=== PATIENT | female | born 1985 | race Caucasian/White ===

== ENCOUNTER 2016-07-30 12:39 | Inpatient (IN) | payer OTHER ==
[~2016-07-30] VITALS: Ht 160 cm; Wt 74.1 kg
[~2016-07-30 12:39] MED LIST: ALBU8.5H4 IH; CEPH-512 PO; CIPR-231 PO; Cyanocobalamin PO; DOXY100T2 PO; GABA-500 PO; HYDR-4003 PO; Hydrocodone/Acetaminophen PO; IBUP-1827 PO; IBUP800T28 PO; LORA-302 PO; ONDA8TAB10 PO; [UNRECOGNIZED DRUG - CODE] PO
[2016-07-30 13:00] VITALS: BP 131/71; PULSE 91; RESP 18; O2SAT 98
[2016-07-30 14:09] LABS: BASOPHILS % (AUTO) 0.1 % (0-3); EOSINOPHILS % (AUTO) 1.2 % (0-5); MONOCYTES % (AUTO) 8.3 % (4-12); Mean Corpuscular Hemoglobin 32.7 pg (27.0-35.0); Mean Corpuscular Volume 95.2 fL (81-100); NEUTROPHILS % (AUTO) 72.8 % (40-74); Platelet Count 261 bil/L (150-400)
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
[2016-07-30 14:26] LABS: Magnesium 1.7 mg/dL (1.6-2.6)
[2016-07-30] MEDS ORDERED: 0.9% Sodium Chloride 1,000 ML IV ONE ×2 (14:30→15:00)
[2016-07-30 14:49] LABS: COLOR,URINE YELLOW (YELLOW)
[2016-07-30 14:50] LABS: APPEARANCE,URINE SLIGHTLY CLOUDY (CLEAR,HAZY); OCCULT BLOOD,URINE NEGATIVE (NEGATIVE); PH,URINE 8.5 (5.0-8.0); UROBILINOGEN,URINE NORMAL (NORMAL)
[2016-07-30] MEDS ORDERED: cefTRIAXone Inj 1,000 MG in Dextrose 5% Minibag Plus 50 ML IV ONE (14:50)
[2016-07-30] MEDS: HYDROmorphone 0.5 mg/0.5 mL iSecure Syringe IVPUSH PRN ×2 (15:04→15:53)
[2016-07-30 15:28] VITALS: BP 118/82; PULSE 88; RESP 16; O2SAT 98
--- NOTE | 2016-07-30 15:57 | DRSVH ---
PROCEDURE: CT ABDOMEN AND PELVIS WITH CONTRAST (PNL-7102) INDICATIONS: Severe abdominal pain, elevated lipase TECHNIQUE: After the administration of intravenous contrast, 5 mm thick sections acquired from the diaphragm to the symphysis. 5 mm coronal and sagittal reformats were acquired. For radiation dose reduction, the following was used: automated exposure control, adjustment of mA and/or kV according to patient siz e. COMPARISON: [facility], CT, ABD/PELVIS W/CON (PNL), 01/04/2007, 21:45. [facility], CT, CT ABD PELVIS W CON, 10/28/2015, 12:59. FINDINGS: Image quality: Excellent. ABDOMEN: Lung bases: Lung bases are clear. Heart size is normal. Solid organs: Liver and spleen are normal in size and enhancement. Diffuse fatty infiltration of the liver is noted. Gallbladder is within normal limits. Biliary system is non dilated. Pancreas enhan josie normally. There is a small 2.1 x 1.9 x 1.6 cm soft tissue density lesion inferior to the first po rtion the duodenum which has imaging characteristics similar to pancreas suspicious for ectopic pancr eas. The lesion is stable compared to prior examinations. Inflammatory changes and fluid are noted ad jacent to the first and second portions of the duodenum and the head of the pancreas which could repr esent duodenitis, a duodenal ulcer or groove pancreatitis. No adrenal nodules. Kidneys demonstrate normal size and enhancement, without hydronephrosis. Peritoneum and bowel: Bowel loops demonstrate normal wall thickness and caliber. No free air. Small amount of low-density free fluid is noted in the lower pelvis. The appendix is normal. Nodes and vessels: No retroperitoneal or mesenteric adenopathy by size criteria. Aorta and inferior vena cava are normal in size. Miscellaneous: No ventral hernias. PELVIS: Genitourinary: Bladder wall thickness is normal. Miscellaneous: No inguinal hernias or adenopathy. Bones: No suspicious bony lesions. No vertebral body compression fractures. IMPRESSION: 1. Inflammatory changes and free fluid adjacent to the proximal duodenum and head of the pancreas. Fi ndings may be due to duodenitis, penetrating duodenal ulcer or pancreatitis. Please correlate with cl inical and laboratory data. 2. Hepatic steatosis. 3. 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 Dictated by: Krystle Robins MD, PhD on 07/30/2016 at 15:38 Approved by: Krystle Robins MD, PhD on 07/30/2016 at 15:56
[2016-07-30] MEDS ORDERED: Ondansetron 2 mg/mL 2 mL Inj IVPUSH PRN (16:40)
[2016-07-30] MEDS ORDERED: HYDROmorphone 1 mg/mL Inj IVPUSH PRN (16:40)
[2016-07-30 17:13] VITALS: BP 131/66; PULSE 78; RESP 18; O2SAT 99
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
[2016-07-30] MEDS ORDERED: Albuterol 1.25 mg/3 mL Inhalation Solution NEB PRN (17:20)
--- NOTE | 2016-07-30 17:45 | NUR ---
Late Entry/admit Pt arrived via w/ch to room 239-1. Able to stand and transfer indep into bed. Orientated to room, call light, smoking policy, visitor hours.
[2016-07-30] MEDS ORDERED: ACET325T51 PO (18:28)
[2016-07-30] MEDS ORDERED: HYDR-656 ORAL (18:28)
[2016-07-30] MEDS ORDERED: SERT25TA6 ORAL (18:28)
[2016-07-30] MEDS ORDERED: ALBU18HF INHALATION (18:29)
[2016-07-30 19:31] VITALS: BP 115/70; PULSE 71; RESP 20; O2SAT 97
--- NOTE | 2016-07-30 20:41 | NUR ---
PAIN Pt receiving IV 1mg dilaudid q4h, given at 1730. Pain reassessment at 1914, pt states "It did okay to start, but my pain is getting worse." Karissa SHELTON at 1929 to re-evaluate pain regimen. No response. Repeat page at 2029. Awaiting orders. Addendum: 07/30/16 at 2045 by VASHTI FARR RN ordered IVP protonix and increased dilaudid to 1-2mg. Will give increased dose and reassess.
[2016-07-30] MEDS ORDERED: Alum-Mag Hydrox-Simeth 30 mL Suspension PO PRN (20:45)
[2016-07-30] MEDS: Pantoprazole 4 mg/mL 10 mL Inj IVPUSH SCH (21:40)
[2016-07-30] MEDS: HYDROmorphone 1 mg/mL Inj IVPUSH PRN ×2 (21:40→23:34)
[2016-07-30] MEDS: 0.9% Sodium Chloride 1,000 ML IV SCH ×2 (21:40→23:50)
[2016-07-30 23:49] VITALS: BP 104/67; PULSE 70; RESP 16; O2SAT 94
[2016-07-31] MEDS: HYDROmorphone 1 mg/mL Inj IVPUSH PRN ×7 (01:26→21:22)
[2016-07-31 05:40] VITALS: BP 106/68; PULSE 89; RESP 20; O2SAT 96
[2016-07-31] MEDS: 0.9% Sodium Chloride 1,000 ML IV SCH ×4 (05:40→19:50)
[2016-07-31 07:53] LABS: BASOPHILS % (AUTO) 0.3 % (0-3); MONOCYTES % (AUTO) 9.6 % (4-12); Mean Corpuscular Hemoglobin 32.8 pg (27.0-35.0); Mean Corpuscular Volume 97.9 fL (81-100); NEUTROPHILS % (AUTO) 69.9 % (40-74); Platelet Count 230 bil/L (150-400)
[2016-07-31] MEDS: Pantoprazole 4 mg/mL 10 mL Inj IVPUSH SCH ×2 (08:00→16:33)
[2016-07-31 08:05] VITALS: BP 102/74; PULSE 75; RESP 16; O2SAT 94
[2016-07-31 08:18] LABS: Magnesium 1.6 mg/dL (1.6-2.6); Phosphorus 3.2 mg/dL (2.5-4.9)
--- NOTE | 2016-07-31 14:08 | PCM.PNMED ---
Subjective Date of Service Jul 31, 2016 Subjective Roro Gardner is a 31 year old female with past medical history significant for anxiety, alcohol use, asthma on albuterol who presents with 2 days of sharp epigastric pain, nausea, vomiting. Admitted for acute pancreatitis. Hospital day 2. Overnight: The patient complained of ongoing pain that was not controlled with 1 mg of Dilaudid. Dilaudid increased to 1-2 mg. Patient rested comfortably with no further complaints. Today: Patient states pain is improved but not resolved at this time. She continues on normal saline at 200 mL per hour. She denies any current nausea or vomiting. We will attempt to advance diet to clear liquids today. Remaining review systems negative. Exam Vital Signs Vital Sign - Last Date Time Temp Pulse Resp B/P Pulse Ox O2 Delivery O2 Flow Rate FiO2 07/31/16 05:40 36.8 89 20 106/68 96 Room Air Intake and Output 07/30/16 07/30/16 07/31/16 Cumulative From/Thru 15:00 23:00 07:00 07/30/16 13:00 - 07/31/16 04:23 Intake Total 1000 ml 1000 ml 1752 ml 3752 ml Output Total 20 ml 300 ml 320 ml Balance 980 ml 1000 ml 1452 ml 3432 ml Intake Oral 240 ml 240 ml IV Total 1000 ml 1000 ml 1512 ml 3512 ml Output Urine Total 20 ml 300 ml 320 ml # Voids 1 1 Exam General: No acute distress, well-developed, well-nourished, appropriately interactive HEENT: Normocephalic, atraumatic. External ears without defect. Pupils equal, round, and reactive to light and accommodation. Anicteric sclerae, moist conjunctivae, and no lid lag. Oropharynx free of erythema and cobble stoning with moist mucosa. Neck: Supple with full range of motion. No jugular venous distension. No bruits. No lymphadenopathy or thyromegaly. Cardiovascular: Regular rate and rhythm with no murmurs, rubs, or gallops appreciated Pulmonary: Clear to auscultation bilaterally with no crackles, wheezes, or rhonchi. Normal respiratory effort with no use of accessory muscles. Abdomen: Bowel tones present. Soft, mild diffuse tenderness, nondistended. No hepatosplenomegaly or masses appreciated. Extremities: No clubbing, cyanosis, edema, or lymphadenopathy appreciated. Skin: Normal temperature, turgor, and texture; no rash, ulcers, or subcutaneous nodules appreciated. Neurological: Cranial nerves grossly intact. Psychiatric: Normal mood and affect. Alert and oriented to person, place, and time. Lab and Diagnostics Lipase 158 Result Diagram: 07/30/16 1357 07/30/16 1357 X-Rays, CTs and MRIs PROCEDURE: CT ABDOMEN AND PELVIS WITH CONTRAST IMPRESSION: 1. Inflammatory changes and free fluid adjacent to the proximal duodenum and head of the pancreas. Findings may be due to duodenitis, penetrating duodenal ulcer or pancreatitis. Please correlate with clinical and laboratory data. 2. Hepatic steatosis. 3. 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 Dictated by: Krystle Robins MD, PhD on 07/30/2016 at 15:38 Approved by: Krystle Robins MD, PhD on 07/30/2016 at 15:56 Assessment & Plan Roro Gardner is a 31 year old female with past medical history significant for anxiety, alcohol use, asthma on albuterol who presents with 2 days of sharp epigastric pain, nausea, vomiting. Admitted for acute pancreatitis. Hospital day 2. 1. Acute pancreatitis, present on admission. Active. - Etiology likely secondary to alcohol. - CT showed inflammatory changes and free fluid adjacent to head of pancreas. - On admission lipase 158. - Patient received 2 L of normal saline in ED continued on 200 mL per hour. - Dilaudid when necessary for pain. - Nausea and pain improved we will attempt to advance diet to clear liquids. - Continue to monitor. Repeat labs in the morning. 2. Concern for possible duodenal ulcer, present on admission. Active. - CT abdomen showed possible duodenal ulcer as described above. - We will obtain fecal occult blood and monitor hemoglobin and hematocrit. - Consideration of GI consultation inpatient versus outpatient. 3. Alcohol use, present on admission. Active. - Alcohol level on admission less than 10. - Patient states she has 2-3 beers and 2 shots of vodka a day. - Discussion about abstaining or at least decreasing the amount of intake. 4. Asthma, present on admission. Chronic. - Albuterol Q6H PRN shortness of breath. 5. Anxiety, present on admission. Chronic. - Sertraline continued from home. 6. Tobacco use, present on admission. Chronic. - NicoDerm patch 21 mg per day. - Discussed cessation with patient. Disposition: Patient's diet advanced to clear liquids. Discharge pending pain control and ability to tolerate oral intake. Pain Evaluation: Adequate Pain Control GI Prophylaxis: Proton Pump Inhibitor VTE Prophylaxis: Sub-Q Enoxaparin Resuscitation Status: CPR: Attempt Resuscitation Attending Statement patient seen and examined with Dr White .I agree with the history,exam, impression and plan as outlined above CRIS WHITE DO Jul 31, 2016 07:57 Jacob Terrazas MD Jul 31, 2016 18:45
--- NOTE | 2016-07-31 16:53 | NUR ---
Social Work: Brief Note Data & Assessment: EMR Reviewed. Patient is a 31 y/o female that admitted for pancreatitis. Patient NOK is listed as Ioana Aguilar [phone]. Patient's insurance is listed as [employer] and PCP is listed as Hernando Paz DO. Patient was discussed in daily rounds and the plan is for the patient to start a clear liquid diet to day and possibly discharge tomorrow. Patient does not have any SW needs at the current time. SW will continue to follow in case a need arise. Plan: Patient is likely to discharge home no needs via POV. SW will continue to follow. Saima Willis LMSW, ERIN
--- NOTE | 2016-07-31 19:12 | NUR ---
pain/mobility/po intake Diet advanced to CL then to full liquid. No pain in associated directly to PO intake Pain 5-10 mid upper abdomen. Able to have rest periods, friends visiting. Took shower indep. Refused Zoloft as she says it makes her lose her hair, she has been weaning herself at home over the last week+ Plan to advance to general diet for breakfast. transition to PO pain pills Discharge home. Pt aware and states that is what she wants this also.
[2016-07-31 22:55] VITALS: BP 119/76; PULSE 79; RESP 18; O2SAT 92
[2016-08-01] MEDS: HYDROmorphone 1 mg/mL Inj IVPUSH PRN ×3 (02:06→14:48)
[2016-08-01] MEDS: 0.9% Sodium Chloride 1,000 ML IV SCH ×2 (05:40→14:48)
--- NOTE | 2016-08-01 06:10 | NUR ---
Pain Pt was trying to only take PO pain meds but after pt had full liquid dinner abdominal pain increased to 10/10 and 10 mg Oxycodone not effective, therefore 2 doses of 1 mg IV Dilaudid given over night. Pt again tried PO pain meds in AM, no N/V noted/reported.
[2016-08-01 07:18] LABS: BASOPHILS % (AUTO) 0.4 % (0-3); EOSINOPHILS % (AUTO) 2.6 % (0-5); MONOCYTES % (AUTO) 10.9 % (4-12); Mean Corpuscular Hemoglobin 33.1 pg (27.0-35.0); Mean Corpuscular Volume 95.6 fL (81-100); Platelet Count 240 bil/L (150-400)
[2016-08-01] MEDS: Pantoprazole 4 mg/mL 10 mL Inj IVPUSH SCH ×2 (09:46→16:57)
[2016-08-01 09:51] VITALS: BP 129/77; PULSE 68; RESP 19; O2SAT 98
--- NOTE | 2016-08-01 10:44 | NUR ---
Morning Rounds Staffed patient's case with Dr. Gudino, case management and social work. Dr. Gudino stated no plan for discharge at this time due to patient's pain not controlled.
[2016-08-01] MEDS ORDERED: Polyethylene Glycol (PEG) 17 Gm Powder PO PRN (12:00)
--- NOTE | 2016-08-01 12:59 | PCM.PNMED ---
Subjective Date of Service Aug 01, 2016 Subjective Sig pain last deanne after few bites of full liquids and oral pain meds weren't sufficient. Same this morning. 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 Vital Sign - Last Date Time Temp Pulse Resp B/P Pulse Ox O2 Delivery O2 Flow Rate FiO2 08/01/16 09:51 36.9 68 19 129/77 98 Room Air Intake and Output 07/31/16 07/31/16 08/01/16 Cumulative From/Thru 15:00 23:00 07:00 07/30/16 13:00 - 08/01/16 06:13 Intake Total 440 ml 1976 ml 6168 ml Output Total 200 ml 700 ml 1220 ml Balance 240 ml 1276 ml 4948 ml Intake Oral 440 ml 861 ml 1541 ml IV Total 1115 ml 4627 ml Output Urine Total 200 ml 700 ml 1220 ml # Voids 4 5 Exam Alert, NAD Heart: Reg Lungs: Clear Abd: soft, mild tenderness across upper abd, BT present Extrem: no pedal edema IVs and Medications Medications Reviewed: Medications were reviewed in detail Lab and Diagnostics Result Diagram: 08/01/1652408/01/16524 Microbiology COLIN CULT URINE Final Collected 07/30/16 08/01/16-0839 Organism 1 ESCHERICHIA COLI U COLONY COUNT/QUANTITY >100,000 CFU/ml Cefazolin-predicts results for the oral agents, cefaclor,cefdinir, cefpodoximen, cefprozil, cefuroximne axetil, cephalexin and loracarbed when used for therapy of uncomplicated UTI's due to E. coli, K. pneumoniae, and Proteus mirabilis. Cefpodoxime, cefdinir and cefuroxime axetil may be tested individually because some isolates may be susceptible to these agents while testing resistant to cefazolin. (CLSI [id number] pg 53) 1. ESCHERICHIA COLI M.I.C Interp --------- ------ * AMOXICILLIN/CLAVULATE 16 I * AMPICILLIN >=32 R * CEFAZOLIN (CEPHALOSPORIN) UTI 4 S * CEFEPIME <=1 S * CEFTRIAXONE <=1 S * CEFUROXIME SODIUM 16 I * CIPROFLOXACIN >=4 R * ERTAPENEM <=0.5 S * GENTAMICIN <=1 S * IMIPENEM <=1 S * LEVOFLOXACIN >=8 R * NITROFURANTOIN <=16 S * TETRACYCLINE >=16 R * TOBRAMYCIN <=1 S * TRIMETHOPRIM/SULFAMETHOXAZOLE >=320 R X-Rays, CTs and MRIs PROCEDURE: CT ABDOMEN AND PELVIS WITH CONTRAST IMPRESSION: 1. Inflammatory changes and free fluid adjacent to the proximal duodenum and head of the pancreas. Findings may be due to duodenitis, penetrating duodenal ulcer or pancreatitis. Please correlate with clinical and laboratory data. 2. Hepatic steatosis. 3. 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 Dictated by: Krystle Robins MD, PhD on 07/30/2016 at 15:38 Approved by: Krystle Robins MD, PhD on 07/30/2016 at 15:56 Assessment & Plan Roro Gardner is a 31 year old female with past medical history significant for anxiety, alcohol use, asthma on albuterol who presents with 2 days of sharp epigastric pain, nausea, vomiting. Admitted for acute pancreatitis. Hospital day 2. # Acute pancreatitis, present on admission. Active. - Etiology likely secondary to alcohol. - CT showed inflammatory changes and free fluid adjacent to head of pancreas. - On admission lipase 158 and today normal at 58 - Patient received 2 L of normal saline in ED and initially continued on 200 mL per hour, will decrease rate - Dilaudid when necessary for pain. - Continue to monitor. - For now continue full liquids # Ecoli UTI, acute. - Will Rx Keflex x 5d # Concern for possible duodenal ulcer, present on admission. Active. - CT abdomen showed possible duodenal ulcer as described above. - We will obtain fecal occult blood and monitor hemoglobin and hematocrit. - Consideration of GI consultation inpatient versus outpatient. # Alcohol use, present on admission. Active. - Alcohol level on admission less than 10. - Patient states she has 2-3 beers and 2 shots of vodka a day. - Discussion about abstaining or at least decreasing the amount of intake. # Asthma, present on admission. Chronic. - Albuterol Q6H PRN shortness of breath. # Anxiety, present on admission. Chronic. - Sertraline continued from home. # Tobacco use, present on admission. Chronic. - NicoDerm patch 21 mg per day. - Discussed cessation with patient. Disposition: Discharge when pain controlled with oral meds and able to tolerate oral intake. GI Prophylaxis: Proton Pump Inhibitor VTE Prophylaxis: Sub-Q Enoxaparin Resuscitation Status: CPR: Attempt Resuscitation Briana Gudino MD Aug 01, 2016 12:59
[2016-08-01 16:56] VITALS: BP 133/84; PULSE 94; RESP 14; O2SAT 96
[2016-08-01 19:41] VITALS: BP 119/74; PULSE 81; RESP 16; O2SAT 97
[2016-08-02 00:09] VITALS: BP 131/85; PULSE 89; RESP 16; O2SAT 97
[2016-08-02] MEDS: 0.9% Sodium Chloride 1,000 ML IV SCH (00:11)
--- NOTE | 2016-08-02 00:30 | NUR ---
pain/iv: pt's iv infiltrated in left thumb, dc'd, offered to place new iv, pt. declined for now stating she is going to try to go through the night on oral pain meds so she can hopefully dc home tomorrow. pt. has had good po intake and urine output over 1,600 today. rating pain 7/10, po roxicodone given, will cont. to monitor.
[2016-08-02 08:26] VITALS: BP 137/87; PULSE 95; RESP 18; O2SAT 97
--- NOTE | 2016-08-02 08:33 | NUR ---
Sertraline Held Patient stated she has stopped taking Sertraline, as it has caused her hair to fall out.
--- NOTE | 2016-08-02 08:37 | NUR ---
IV access/IV Protonix Contacted Dr. Gudino with the following cook page: Patient lost IV access overnight and did not want another IV started, but IV Protonix is scheduled for this morning. Please advise. Thank you. Effie ANNE
--- NOTE | 2016-08-02 10:26 | PCM.DIMED ---
Discharge Instructions Date of Service Aug 02, 2016 Dates of Hospitalization Jul 30, 2016 at 16:54 Diet Other (Very low fat for another 2 weeks. Very important to avoid alcohol!!) Activity No restrictions Patient Instructions Follow-up with PCP in: 1 week Briana Gudino MD Aug 02, 2016 10:26
[2016-08-02] MEDS ORDERED: OXYC5TAB72 PO (10:32)
[2016-08-02] MEDS ORDERED: PANT40TA3 PO (10:32)
[2016-08-02] MEDS ORDERED: CEPH500C PO (10:32)
[2016-08-02] MEDS ORDERED: ONDA4TAB6 PO (10:32)
--- NOTE | 2016-08-02 10:36 | PCM.DC.MED ---
Discharge Summary Date of Service Aug 02, 2016 Dates of Hospitalization Date of Hospital Admission Jul 30, 2016 at 16:54 Date of Discharge: Aug 02, 2016 Providers: Admitting Physician: Abena Camacho MD Primary Care Physician: Hernando Paz DO Attending Physician: Abena Camacho MD Diagnosis at Time of Discharge Diagnosis at Time of Discharge Acute pancreatitis, present on admission. - Etiology likely secondary to alcohol. Concern for possible duodenal ulcer, noted on CT scan Ecoli UTI, acute. Procedures XRay, CTs & MRIs PROCEDURE: CT ABDOMEN AND PELVIS WITH CONTRAST IMPRESSION: 1. Inflammatory changes and free fluid adjacent to the proximal duodenum and head of the pancreas. Findings may be due to duodenitis, penetrating duodenal ulcer or pancreatitis. Please correlate with clinical and laboratory data. 2. Hepatic steatosis. 3. 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 Dictated by: Krystle Robins MD, PhD on 07/30/2016 at 15:38 Approved by: Krystle Robins MD, PhD on 07/30/2016 at 15:56 Brief History 31yo F with anxiety, active etoh use, asthma on albuterol prn p/w 2 days of sharp epigastric pain, nausea, vomiting Pt had etoh drinking on weekends four days ago, otherwise no recent significant illness, 2 days ago patient woke up in the middle of the night with sharp epigastric pain, started having nausea, vomiting. pt vomited 8times yesterday. Epigastric pain has worsened, radiating to the back. pt was unable to eat anything, decided to come to hospital. Patient denied similar episodes in the past. no hx of GB stone, starvation prior to this episode. pt is taking OCP. ROS: No fever, chills, dysuria, frequency oh, urgency, constipation, diarrhea, cough, phlegm in ED VS 131/71, 91, 18, afebrile, 98% on RA. labs were notable for elevated [id number], CT abd showed pancreatitis versus duodenitis, admitted to hospital. received dilaudid, Rocephin, IVF 2liters. Hospital Course Roro Gardner is a 31 year old female with past medical history significant for anxiety, alcohol use, asthma on albuterol who presents with 2 days of sharp epigastric pain, nausea, vomiting. Admitted for acute pancreatitis. Hospital day 2. # Acute pancreatitis, present on admission. Active. - Etiology likely secondary to alcohol. - CT showed inflammatory changes and free fluid adjacent to head of pancreas. - On admission lipase 158 and day prior to DC normal at 58 - Patient received 2 L of normal saline in ED and initially continued on 200 mL per hour, then decreased rate - Dilaudid when necessary for pain. - At time of discharge tolerating full liquids and pain controlled with oral oxycodone # Ecoli UTI, acute. - Will Rx Keflex x 5d # Concern for possible duodenal ulcer, present on admission. Active. - CT abdomen showed possible duodenal ulcer as described above. - Rx Protonix, initially IV # Alcohol use, present on admission. Active. - Alcohol level on admission less than 10. - Patient states she has 2-3 beers and 2 shots of vodka a day. - Discussion held about abstaining or at least decreasing the amount of intake. # Asthma, present on admission. Chronic. - Albuterol Q6H PRN shortness of breath. # Anxiety, present on admission. Chronic. - Sertraline continued from home but then patient later said she had already discontinued it due to causing thinning of her hair. # Tobacco use, present on admission. Chronic. - NicoDerm patch 21 mg per day. - Discussed cessation with patient. Exam Vital Signs (Last) Date Time Temp Pulse Resp B/P Pulse Ox O2 Delivery O2 Flow Rate FiO2 08/02/16 08:26 37.0 95 18 137/87 97 Room Air Exam Ambulating in room, abd soft, NT Test 07/30/16 13:57 07/30/16 14:24 07/31/16 06:55 08/01/16 05:25 Hold [place] Top Tube Received (Received) Alcohol, Quantitative < 10mg/dL (0-10) Urine Color Yellow (YELLOW) Urine Appearance Slightly cloudy Urine pH 8.5 (5.0-8.0) Urine Specific [place] 1.015 (1.003-1.035) Urine Protein Negativemg/dL (NEG,TRACE) Urine Glucose (UA) Negativemg/dL (NEGATIVE) Urine Ketones Tracemg/dL (NEGATIVE) Urine Occult Blood Negative (NEGATIVE) Urine Nitrite Negative (NEGATIVE) Urine Bilirubin Negative (NEGATIVE) Urine Urobilinogen Normalmg/dL (NORMAL) Urine Leukocyte Esterase Trace (NEGATIVE) Urine RBC 0-2/hpf (0-2) Urine WBC 0-5/hpf (0-5) Urine Epithelial Cells Moderate/hpf (NONE-MOD) Urine Crystals None seen (NONE SEEN) Urine Bacteria Many/hpf (NONE-FEW) Urine Hyaline Casts None/lpf (NONE) Urine Granular Casts None seen (NONE SEEN) Urine Waxy Casts None seen (NONE SEEN) Urine Red Blood Cell Casts None seen (NONE SEEN) Urine White Blood Cell Casts None seen (NONE SEEN) Urine Mucus Present (None Seen) Urine Trichomonas None seen (NONE SEEN) Urine Yeast None (NONE SEEN) Urinalysis Comment None Urine Culture Reflexed Indicated Phosphorus Level 3.2mg/dL (2.5-4.9) Magnesium Level 1.6mg/dL (1.6-2.6) White Blood Count 7.3th/mm3 (3.8-10.1) Red Blood Count 3.87mil/mm3 (3.90-5.20) Hemoglobin 12.8g/dL (12.0-15.6) Hematocrit 37.0% (35.0-46.0) Mean Corpuscular Volume 95.6fL (81-100) Mean Corpuscular Hemoglobin 33.1pg (27.0-35.0) Mean Corpuscular Hemoglobin Concent 34.6% (32.0-37.0) Red Cell Distribution Width 11.8% (12.3-15.4) Platelet Count 240bil/L (150-400) Neutrophils (%) (Auto) 62.0% (40-74) Lymphocytes (%) (Auto) 23.7% (14-46) Monocytes (%) (Auto) 10.9% (4-12) Eosinophils (%) (Auto) 2.6% (0-5) Basophils (%) (Auto) 0.4% (0-3) Sodium Level 137mEq/L (134-144) Potassium Level 4.2mEq/L (3.5-5.2) Chloride Level 104mEq/L (97-108) Carbon Dioxide Level 19mmol/L (18-29) Blood Urea Nitrogen 2mg/dL (6-20) Creatinine 0.34mg/dL (0.57-1.00) Estimat Glomerular Filtration Rate 326mL/min (>59) Glucose Level 78mg/dL (60-99) Calcium Level 8.0mg/dL (8.5-10.1) Total Bilirubin 0.4mg/dL (0.0-1.2) Aspartate Amino Transf (AST/SGOT) 24U/L (0-50) Alanine Aminotransferase (ALT/SGPT) 29U/L (0-32) Alkaline Phosphatase 66U/L (25-150) Total Protein 5.1g/dL (6.4-8.4) Albumin 2.6g/dL (3.4-5.0) Lipase 58U/L (13-60) Microbiology Results COLIN CULT URINE Final Collected 07/30/16 08/01/16-0839 Organism 1 ESCHERICHIA COLI U COLONY COUNT/QUANTITY >100,000 CFU/ml Cefazolin-predicts results for the oral agents, cefaclor,cefdinir, cefpodoximen, cefprozil, cefuroximne axetil, cephalexin and loracarbed when used for therapy of uncomplicated UTI's due to E. coli, K. pneumoniae, and Proteus mirabilis. Cefpodoxime, cefdinir and cefuroxime axetil may be tested individually because some isolates may be susceptible to these agents while testing resistant to cefazolin. (CLSI [id number] pg 53) 1. ESCHERICHIA COLI M.I.C Interp --------- ------ * AMOXICILLIN/CLAVULATE 16 I * AMPICILLIN >=32 R * CEFAZOLIN (CEPHALOSPORIN) UTI 4 S * CEFEPIME <=1 S * CEFTRIAXONE <=1 S * CEFUROXIME SODIUM 16 I * CIPROFLOXACIN >=4 R * ERTAPENEM <=0.5 S * GENTAMICIN <=1 S * IMIPENEM <=1 S * LEVOFLOXACIN >=8 R * NITROFURANTOIN <=16 S * TETRACYCLINE >=16 R * TOBRAMYCIN <=1 S * TRIMETHOPRIM/SULFAMETHOXAZOLE >=320 R Discharge Medications Discharge Medications Cephalexin (Cephalexin) 500 Mg Capsule 500 MG PO TID Until gone Prescribed by: BELLA BAKER MD Pantoprazole DR (Pantoprazole DR) 40 Mg Tablet.dr 40 MG PO BIDAC Prescribed by: BELLA BAKER MD hydrOXYzine Hcl (HydrOXYzine Hcl) 25 Mg Tablet 25 MG ORAL HS (Reported) As needed Acetaminophen (Acetaminophen) 325 Mg Tablet 325 MG PO Q4H PRN PRN For Pain ( Reported) Albuterol Sulfate (Ventolin HFA Inhaler) 200 Puff/18 Gm Inhaler 2 PUFFS INHALATION QID PRN PRN For Shortness of Breath (Reported) Ondansetron (Zofran) 4 Mg Tablet 4 MG PO Q4H PRN PRN For Nausea Prescribed by: BELLA BAKER MD oxyCODONE (oxyCODONE) 5 Mg Tablet 5-10 MG PO Q6H PRN PRN For Moderate Pain Prescribed by: BELLA BAKER MD Followup Plan Discharge Diet: Other (Very low fat for another 2 weeks. Very important to avoid alcohol!!) Discharge Activity: No restrictions Follow-up with PCP in: 1 week Bella Baker MD Aug 02, 2016 10:36
--- NOTE | 2016-08-02 11:58 | NUR ---
Pending Discharge Contacted Dr. Gudino with the following cook page: Patient is questioning when she will be discharged. I have the prescriptions you printed, just need signatures. Thank you.
--- NOTE | 2016-08-02 12:29 | NUR ---
Discharge Note Patient given all discharge instructions and education, patient had no questions at this time. Patient and patient's significant other gathered all belongings from the room. Patient declined wheelchair transport and walked out with significant other.
[2016-08-02] MEDS ORDERED: Pantoprazole 40 mg ER24 Tablet PO SCH (16:30)
== END 2016-08-02 12:30 | disposition home or self-care (01) | DRG 439 ==
LOC: SED 12:39 → UNDOADMIN 16:54 → MOC 16:54
PROVIDERS: ADMIT Internal Medicine; ATTEND Internal Medicine
DX: K85.20 Alcohol induced acute pancreatitis without necrosis or infection (principal); N39.0 Urinary tract infection, site not specified; K26.9 Duodenal ulcer, unspecified as acute or chronic, without hemorrhage or perforation; B96.20 Unspecified Escherichia coli [E. coli] as the cause of diseases classified elsewhere; J45.909 Unspecified asthma, uncomplicated; F12.90 Cannabis use, unspecified, uncomplicated; F41.9 Anxiety disorder, unspecified; Z72.89 Other problems related to lifestyle; Z16.11 Resistance to penicillins; F17.200 Nicotine dependence, unspecified, uncomplicated; Z16.23 Resistance to quinolones and fluoroquinolones; Z86.14 Personal history of Methicillin resistant Staphylococcus aureus infection

== ENCOUNTER 2016-11-11 09:51 | Emergency (ER) | payer OTHER ==
[~2016-11-11] VITALS: Ht 160 cm; Wt 70.9 kg
[~2016-11-11 09:51] MED LIST changes: +ACET325T51 PO; +ALBU18HF INHALATION; -ALBU8.5H4 IH; -CEPH-512 PO; +CEPH500C PO; -CIPR-231 PO; -Cyanocobalamin PO; -DOXY100T2 PO; -GABA-500 PO; -HYDR-4003 PO; +HYDR-656 ORAL; -Hydrocodone/Acetaminophen PO; -IBUP-1827 PO; -IBUP800T28 PO; -LORA-302 PO; +ONDA4TAB6 PO; -ONDA8TAB10 PO; +OXYC5TAB72 PO; +PANT40TA3 PO; -[UNRECOGNIZED DRUG - CODE] PO
[2016-11-11 10:07] VITALS: BP 112/74; PULSE 91; RESP 18; O2SAT 97
--- NOTE | 2016-11-11 11:25 | DRSVH ---
PROCEDURE: X-RAY CHEST, TWO VIEWS ([id number]) INDICATIONS: cough TECHNIQUE: 2 views of the chest were acquired. COMPARISON: [facility], CR, CHEST 2VW, 11/20/2014, 6:41. FINDINGS: Surgical changes and devices: None. Lungs and pleura: There has been interval development of slightly increased perihilar lung markings. No lobar consolidation is evident. No effusion or pneumothorax is evident. Mediastinum: Mediastinal contours are normal. Heart size is normal. Bones and chest wall: No suspicious bony abnormalities. Soft tissues appear unremarkable. IMPRESSION: Prominent perihilar lung markings may be related to mild vascular congestion, peribronchi tis or reactive airway disease. No typical pneumonia is evident. Dictated by: Agustín Hess M.D. on 11/11/2016 at 10:09 Approved by: Agustín Hess M.D. on 11/11/2016 at 10:10
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
[2016-11-11] MEDS ORDERED: ALBU8.5H2 INHALATION (11:43)
[2016-11-11] MEDS ORDERED: BENZ-12 PO (11:43)
[2016-11-11] MEDS ORDERED: NPR500T PO (11:43)
[2016-11-11] MEDS ORDERED: AZIT250T4 PO (11:43)
== END 2016-11-11 11:44 | disposition home or self-care (01) ==
LOC: SED 09:51
DX: J40 Bronchitis, not specified as acute or chronic (principal); R06.02 Shortness of breath; R50.9 Fever, unspecified; R68.83 Chills (without fever); M79.1 Myalgia; R51 Headache; R11.2 Nausea with vomiting, unspecified; J45.909 Unspecified asthma, uncomplicated; F17.200 Nicotine dependence, unspecified, uncomplicated; Z88.5 Allergy status to narcotic agent; Z87.01 Personal history of pneumonia (recurrent); Z86.19 Personal history of other infectious and parasitic diseases

== ENCOUNTER 2016-11-27 13:11 | Emergency (ER) | payer OTHER ==
[~2016-11-27] VITALS: Ht 160 cm; Wt 71.8 kg
[~2016-11-27 13:11] MED LIST changes: +ALBU8.5H2 INHALATION; +AZIT250T4 PO; +BENZ-12 PO; +NPR500T PO
[2016-11-27 13:14] VITALS: BP 118/72; PULSE 95; RESP 12; O2SAT 97
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
--- NOTE | 2016-11-27 14:51 | DRSVH ---
PROCEDURE: X-RAY LEFT FOOT COMPLETE, MINIMUM THREE VIEWS ([id number]) INDICATIONS: 31 year-old female with medial left foot pain after injury 3 days ago. TECHNIQUE: 3 views of the foot were acquired. COMPARISON: [facility], CR, XR ANKLE 3VW LT, 11/27/2016, 14:17. FINDINGS: Bones: No fractures or dislocations. No suspicious bony lesions. Soft tissues: There is dorsal forefoot soft tissue swelling. No tibiotalar joint effusion. Achilles tendon appears normal. IMPRESSION: No acute bony injury to the left foot. Dictated by: Jase Del Valle M.D. on 11/27/2016 at 14:48 Approved by: Jase Del Valle M.D. on 11/27/2016 at 14:49
--- NOTE | 2016-11-27 14:56 | DRSVH ---
PROCEDURE: X-RAY LEFT ANKLE, MINIMUM THREE VIEWS ([id number]) INDICATIONS: pain medial foot and lateral ankle TECHNIQUE: 3 views of the ankle were acquired. COMPARISON: None. FINDINGS: Bones: No fractures or dislocations. Ankle mortise is normally aligned. No suspicious bony lesions . Soft tissues: No tibiotalar joint effusion. Achilles tendon appears normal. IMPRESSION: No fracture Dictated by: Ezio Zurita M.D. on 11/27/2016 at 14:54 Approved by: Ezio Zurita M.D. on 11/27/2016 at 14:55
[2016-11-27] MEDS ORDERED: HYDR-4003 PO (15:43)
[2016-11-27 15:54] VITALS: BP 114/80; PULSE 79; RESP 16; O2SAT 98
== END 2016-11-27 15:55 | disposition home or self-care (01) ==
LOC: SED 13:11
DX: S93.402A Sprain of unspecified ligament of left ankle, initial encounter (principal); S93.692A Other sprain of left foot, initial encounter; X58.XXXA Exposure to other specified factors, initial encounter; Y93.89 Activity, other specified; Y92.9 Unspecified place or not applicable; Y99.8 Other external cause status; J45.909 Unspecified asthma, uncomplicated; Z86.14 Personal history of Methicillin resistant Staphylococcus aureus infection; G89.29 Other chronic pain; F17.200 Nicotine dependence, unspecified, uncomplicated; Z91.018 Allergy to other foods; Z88.5 Allergy status to narcotic agent